=== PATIENT | female | born 1950 | race Caucasian/White ===

== ENCOUNTER 2021-06-28 12:06 | Emergency (ER) | payer MEDICARE, MEDICAID ==
[2021-06-28] MEDS ORDERED: Lidocaine 1% w/Epinephrine 1:100K 20 ML VIAL ONE (13:08)
[2021-06-28] MEDS ORDERED: Bacitracin 1 PK ONE (13:27)
[2021-06-28] MEDS ORDERED: Boostrix 0.5 ML (Tdap) VIAL ONE (14:05)
== END 2021-06-28 14:27 | disposition home or self-care (01) ==
LOC: CSHERS 12:06
DX: S01.81XA Laceration without foreign body of other part of head, initial encounter (principal); S01.01XA Laceration without foreign body of scalp, initial encounter; D68.9 Coagulation defect, unspecified; J44.9 Chronic obstructive pulmonary disease, unspecified; I10 Essential (primary) hypertension; W19.XXXA Unspecified fall, initial encounter
CPT/HCPCS: 70450; 72125; 90471; 90715